=== PATIENT | female | born 1940 | race Caucasian/White ===

== ENCOUNTER 2019-04-14 06:24 | Day surgery (SDC) | payer OTHER ==
[~2019-04-14] VITALS: Ht 162.6 cm; Wt 68.4 kg
[~2019-04-14 06:24] MED LIST: Aspirin EC81 MG PO; CETI5 PO; CYCL10 PO; Calcium 600+D1 EAC2 PO; HYDCHL12.5 PO; NITR.4SL SL; OLME20 PO; OMEP20ER PO; PROBIOTIC; ZYRTEC10 M1 PO
[2019-04-14] MEDS ORDERED: SELENIUM200 MC1 PO (06:57)
[2019-04-14] MEDS ORDERED: UBID10 (06:57)
--- NOTE | 2019-04-14 07:25 | NUR ---
04/14/[address] DR[address] HERNÁNDEZ BOTH NOTIFIED OF HIGH BP, NO NEW ORDERS AT THIS TIME
[2019-05-04] MEDS ORDERED: Prilosec Otc20 MG PO (11:17)
[2019-05-04] MEDS ORDERED: OLME20 PO (11:17)
== END 2019-04-14 08:43 | disposition home or self-care (01) ==
LOC: ORSCSDS 06:24
PROVIDERS: Ophthalmology
PROC: 08RJ3JZ Replacement of Right Lens with Synthetic Substitute, Percutaneous Approach (ICD-10-PCS; principal; 2019-04-14 08:00)
DX: H25.11 Age-related nuclear cataract, right eye (principal); I10 Essential (primary) hypertension; I25.10 Atherosclerotic heart disease of native coronary artery without angina pectoris; F17.210 Nicotine dependence, cigarettes, uncomplicated; Z79.899 Other long term (current) drug therapy; Z79.82 Long term (current) use of aspirin
CPT/HCPCS: J2001; J2250; J3010; J3301; J7120; V2632

== ENCOUNTER 2019-05-05 06:34 | Day surgery (SDC) | payer OTHER ==
[~2019-05-05] VITALS: Ht 162.6 cm; Wt 68.6 kg
[~2019-05-05 06:34] MED LIST changes: +Prilosec Otc20 MG PO; +SELENIUM200 MC1 PO; +UBID10
[2019-05-05] MEDS ORDERED: ZESTORETIC 20-121 EA PO (07:27)
== END 2019-05-05 08:49 | disposition home or self-care (01) ==
LOC: ORSCSDS 06:34
PROVIDERS: Ophthalmology
PROC: 08RK3JZ Replacement of Left Lens with Synthetic Substitute, Percutaneous Approach (ICD-10-PCS; principal; 2019-05-05 08:00)
DX: H25.12 Age-related nuclear cataract, left eye (principal); I25.2 Old myocardial infarction; I10 Essential (primary) hypertension; Z79.82 Long term (current) use of aspirin; Z79.899 Other long term (current) drug therapy
CPT/HCPCS: J2001; J2250; J3010; J3301; J7120; V2632

== ENCOUNTER → 2023-06-12 | Outpatient (CLI) | payer OTHER ==
[~2023-06-12] MED LIST changes: +ZESTORETIC 20-121 EA PO
== END ==
LOC: LAB 10:03 → LAB SHORT 10:03
DX: L03.031 Cellulitis of right toe (principal); S92.524B Nondisplaced fracture of middle phalanx of right lesser toe(s), initial encounter for open fracture
CPT/HCPCS: 87070; 87075; 87076; 87077; 87186; 87205